=== PATIENT | female | born 1990 | race African-American/Black ===

== ENCOUNTER 2018-06-13 23:12 | Emergency (ER) | payer OTHER ==
[~2018-06-13] VITALS: Ht 170.2 cm; Wt 114.4 kg
[2018-06-14] MEDS ORDERED: CefTRIAXone 1 GM/DEXTROSE 50 ML IV ONE (01:00)
[2018-06-14] MEDS ORDERED: KETOROLAC TROMETHAMINE 30 MG/ML VIAL IVP ONE (01:00)
[2018-06-14] MEDS ORDERED: SODIUM CHLORIDE 0.9% 1,000 ML IV ONE (01:00)
[2018-06-14 01:42] LABS: INFLUENZA TYPE A NEGATIVE FOR TYPE A (NEGATIVE); INFLUENZA TYPE B NEGATIVE FOR TYPE B (NEGATIVE)
[2018-06-14 01:59] LABS: BASOPHILS % (AUTO) 0.6 % (0.0-2.0); HEMATOCRIT 42.6 % (36-46); HEMOGLOBIN 14.3 g/dL (12.0-16.0); LYMPHOCYTES # (AUTO) 1.1 K/uL (1.0-4.8); MEAN CORPUSCULAR HEMOGLOBIN 28.5 pg (26.0-34.0); MEAN CORPUSCULAR HGB CONC 33.5 G/dL (31.0-37.0); MEAN CORPUSCULAR VOLUME 85 fL (80-100); MONOCYTES # (AUTO) 0.4 K/uL (0.1-1.0); MONOCYTES % (AUTO) 4.9 % (2.0-9.0); NEUTROPHILS # (AUTO) 5.8 K/uL (1.8-7.7); NEUTROPHILS % (AUTO) 78.5 % (40.0-70.0); PLATELET COUNT (AUTO) 194 K/uL (150-450); RED BLOOD CELL COUNT(AUTO) 5.01 MIL/uL (4.00-5.20); RED CELL DISTRIBUTION WIDTH 13.5 % (11.5-14.5)
[2018-06-14 03:55] VITALS: BP 130/72
== END 2018-06-14 04:11 | disposition home or self-care (01) ==
LOC: EMS 23:13
DX: N61.0 Mastitis without abscess (principal)
CPT/HCPCS: 36415; 85025; 87804; 96365; 96375; 99283; J0696; J1885; J7030